=== PATIENT | female | born 1990 ===

== ENCOUNTER 2018-04-12 07:43 | Emergency (ER) | payer OTHER ==
[~2018-04-12] VITALS: Ht 167.6 cm; Wt 71.7 kg
[2018-04-12] MEDS ORDERED: HYDROCODONE/APAP 5-325MG TABLET ONE (08:14)
[2018-04-12] MEDS ORDERED: HYDROCODONE/APAP 5-325MG TABLET PO ONE (08:15)
[2018-04-12 08:17] LABS: *URINE HCG, QUAL NEGATIVE (NEGATIVE)
--- NOTE | 2018-04-12 08:57 | NUR ---
MSE COMPLETED, PT D/C'D HOME, ACI/RX X4 GIVEN.PT AMBULATED W/O DIFF/TOOK ALL BELONGINGS.
[2018-04-12 08:59] VITALS: BP 115/74
== END 2018-04-12 08:59 | disposition home or self-care (01) ==
LOC: ER 07:45
DX: J02.8 Acute pharyngitis due to other specified organisms (principal); B97.89 Other viral agents as the cause of diseases classified elsewhere; F17.290 Nicotine dependence, other tobacco product, uncomplicated
CPT/HCPCS: 36415; 84703; 86403; 87070; A4663